=== PATIENT | female | born 1985 | race Caucasian/White ===

== ENCOUNTER 2024-01-30 22:09 | Emergency (ER) | payer MEDICAID ==
[~2024-01-30] VITALS: Ht 157.5 cm; Wt 77.1 kg
[2024-01-30 22:18] VITALS: BP_SYST 152; PULSE 98; RESP 20; TEMP 98.5; O2SAT 98
[2024-01-30 23:18] LABS: BASOPHILS # (AUTO) 0.1 K/uL (0.0-0.2); BASOPHILS % (AUTO) 0.7 % (0.0-2.0); EOSINOPHILS # (AUTO) 0.3 K/uL (0.0-0.4); EOSINOPHILS % (AUTO) 2.6 % (0.0-4.0); HEMATOCRIT 37.5 % (36-48); HEMOGLOBIN 13.2 g/dL (12.0-16.0); LYMPHOCYTES # (AUTO) 2.3 K/uL (1.0-5.5); MEAN CORPUSCULAR HEMOGLOBIN 28 pg (27-31); MEAN CORPUSCULAR HGB CONC 35 % (32-36); MEAN CORPUSCULAR VOLUME 80 fL (79.0-98.0); MONOCYTES # (AUTO) 0.6 K/uL (0.0-1.0); MONOCYTES % (AUTO) 4.4 % (1.7-9.3); NEUTROPHILS # (AUTO) 9.5 K/uL (1.8-7.7); NEUTROPHILS % (AUTO) 74.3 % (40.0-70.0); PLATELET COUNT (AUTO) 404 K/uL (130-430); RED BLOOD CELL COUNT(AUTO) 4.71 MIL/uL (4.2-6.2); RED CELL DISTRIBUTION WIDTH 14.1 % (9.0-15.0); WHITE BLOOD COUNT (AUTO) 12.8 K/uL (4.8-10.8)
[2024-01-30 23:34] LABS: BILIRUBIN,URINE NEGATIVE (NEGATIVE); BLOOD, URINE NEGATIVE (NEGATIVE); CLARITY/URINE CLEAR (CLEAR); COLOR,URINE YELLOW (YELLOW); GLUCOSE,URINE NEGATIVE (NEGATIVE); KETONES,URINE NEGATIVE (NEGATIVE); LEUKOCYTE ESTERASE ,URINE NEGATIVE (NEGATIVE); NITRITE, URINE NEGATIVE (NEGATIVE); PROTEIN URINE NEGATIVE (NEGATIVE); UROBILINOGEN,URINE 0.2 (0.2-1.0)
[2024-01-30 23:51] LABS: CALCIUM 8.8 mg/dL (8.4-11.0); CREATININE 0.81 mg/dL (0.55-1.30); POTASSIUM 3.6 mmol/L (3.5-5.1)
[2024-01-31 00:04] LABS: METHAMPHETAMINES SCREEN,URINE POSITIVE (NEG <=500); URINE AMPHETAMINE POSITIVE (NEG <=500)
[2024-01-31 00:05] LABS: BENZODIAZEPINE, URINE NEGATIVE (NEG <=150); CANNABINOID, URINE NEGATIVE (NEG <=50); COCAINE, URINE NEGATIVE (NEG <=150); OPIATE, URINE NEGATIVE (NEG <=100); PHENCYCLIDINE SCREEN,URINE NEGATIVE (NEG <=25); UR TRICYCLIC ANTIDEPRESSANTS NEGATIVE (NEG <=300); URINE METHADONE NEGATIVE (NEG <=200); URINE OXYCODONE SCREEN NEGATIVE (NEG <=100)
[2024-01-31 00:09] LABS: BARBITURATE, URINE NEGATIVE (NEG <=200)
[2024-01-31] MEDS: MORPHINE 4 MG INJ. 4 MG/ML VIAL IM ONE (01:01)
[2024-01-31] MEDS ORDERED: LISI1TAB57 PO (01:11)
[2024-01-31] MEDS ORDERED: ONDANSETRON 4 MG ODT TAB ONE (01:13)
[2024-01-31 01:20] VITALS: BP_SYST 152; PULSE 98; RESP 20; TEMP 98.5; O2SAT 98
[2024-01-31] MEDS: ONDANSETRON 4 MG ODT TAB PO ONE (01:26)
== END 2024-01-31 01:18 | disposition home or self-care (01) ==
LOC: SED 22:09
DX: N17.8 Other acute kidney failure (principal); R60.0 Localized edema; I10 Essential (primary) hypertension; F15.129 Other stimulant abuse with intoxication, unspecified; F12.90 Cannabis use, unspecified, uncomplicated
CPT/HCPCS: 99283; 80307; 80048; 81001; 85025; 36415; 81025; 96372; Q0162; J2270; 81003